=== PATIENT | male | born 1940 | race Caucasian/White ===

== ENCOUNTER 2018-02-03 13:11 | Outpatient (CLI) | payer MEDICARE ==
[~2018-02-03 13:11] MED LIST: Gadobenate Dimeglumine 529 MG/1 ML (20ML VIAL) ONE
--- NOTE | 2018-02-03 17:36 | MRI ---
BRAIN MRI WITH AND WITHOUT CONTRAST: 02/03/18 CLINICAL HISTORY: Alzheimer's disease. 77-year-old male. No prior comparison imaging. FINDINGS: There is generalized moderate parenchymal atrophy with compensatory dilatation of the ventricular sys tem. Mild chronic ischemic disease is present within the cerebral white matter. There is no acute ter ritorial infarction, mass effect or midline shift. The imaged skull base flow voids are patent. Nativ e intraocular lenses are absent. Postcontrast imaging does not reveal evidence of an intra-axial, enh ancing mass. IMPRESSION: 1. Moderate global atrophy with compensatory dilatation of ventricular system. 2. Mild chronic ischemic disease. 3. No acute intracranial abnormalities. POS: [facility]
== END 2018-02-03 13:12 | disposition home or self-care (01) ==
LOC: SCSMRI 13:11
PROVIDERS: ATTEND Psychiatry & Neurology Neurology
DX: G30.1 Alzheimer's disease with late onset (principal); I67.82 Cerebral ischemia; G93.89 Other specified disorders of brain
CPT/HCPCS: 70553; 82565; A9579

== ENCOUNTER 2018-06-01 10:20 | Outpatient (CLI) | payer MEDICARE ==
--- NOTE | 2018-06-01 13:41 | MRI ---
MRI OF THE LUMBAR SPINE WITHOUT CONTRAST: COMPARISON: None. HISTORY: Lower radiculopathy with left hip pain for 3 months. TECHNIQUE: Multiplanar, multisequence MR images were obtained in of the lumbar spine without contrast. FINDINGS: Generalized disk desiccation is seen. There is scoliotic curvature of the spine. There are end plat e degenerative changes surrounding the L2-3 intervertebral disks. Conus medullaris terminates normally at T12-L1. The prevertebral and paraspinal soft tissues are unr emarkable. T12-L1: Unremarkable. L1-2: Unremarkable. L2-3: A moderate disk-osteophyte complex is seen. Moderate bilateral posterior disk arthrosis. Mil d central canal stenosis. Moderate neural foraminal stenosis. L3-4: A moderate disk-osteophyte complex is seen. Moderate bilateral posterior facet arthrosis. Se valery central canal stenosis. Severe right and moderate left neural foraminal stenosis. L4-5: A small disk-osteophyte complex is seen. Moderate bilateral posterior facet arthrosis. No ce ntral canal stenosis. Moderate right and mild left neural foraminal stenosis. L5-S1: A small disk-osteophyte complex is seen. No posterior facet arthrosis. No central canal lul nosis. Moderate right and mild left neural foraminal stenosis. IMPRESSION: Degenerative changes of the lumbar spine as above. POS: [facility]
== END 2018-06-01 10:21 | disposition home or self-care (01) ==
LOC: BICMRI 10:20
PROVIDERS: ATTEND Orthopaedic Surgery
DX: M47.26 Other spondylosis with radiculopathy, lumbar region (principal)
CPT/HCPCS: 72148